=== PATIENT | female | born 1995 | race American Indian/Alaskan Native ===

== ENCOUNTER 2017-07-07 23:08 | Emergency (ER) | payer MEDICAID ==
[2017-07-07 23:19] VITALS: BP 118/62; PULSE 78; RESP 18; TEMP 97.9; O2SAT 99
[2017-07-07] MEDS ORDERED: Sodium Chloride 0.9% 1,000 ML IV STA (23:32)
--- NOTE | 2017-07-07 23:41 | ED PDOC ---
Arrival/HPI - General Chief Complaint: Abdominal Pain Time Seen by Provider: 07/07/17 23:09 Historian: Patient - History of Present Illness Narrative History of Present Illness (Text): 07/07/17 23:35 21 year old female presents to the emergency department complaining of epigastric pain radiating to the lower back associated with a cough that began 3 hours ago. Patient states that she was walking with her aunt and after coughing with mucus pain began. She also states the pain was severe and went to [facility]. Patient left after waiting over an hour and states she was shaking. Patient states to not have eaten since, but denies any fever, chills, chest pain , shortness of breath, nausea, vomiting, diarrhea, urinary symptoms, neck pain, headache, dizziness, or any other complaints. Time/Duration: Other (began 3 hours ago) Symptom Onset: Sudden Activities at Onset: Light Context: Walking Past Medical History - Provider Review Nursing Documentation Reviewed: Yes - Psychiatric Hx Substance Use: No Family/Social History - Physician Review Nursing Documentation Reviewed: Yes Family/Social History: No Known Family HX Smoking Status: n Hx Alcohol Use: No Hx Substance Use: No Allergies/Home Meds Allergies/Adverse Reactions: Allergies banana Allergy (Verified 07/07/17 23:22) SWELLING Review of Systems - Physician Review All systems were reviewed & negative as marked: Yes - Review of Systems Constitutional: absent: Fevers, Other (chills) Respiratory: Cough (with mucus ). absent: SOB Cardiovascular: absent: Chest Pain Gastrointestinal: Abdominal Pain (epigastric abdominal pain), Appetite Changes. absent: Diarrhea, Nausea, Vomiting Genitourinary Female: absent: Dysuria, Frequency, Hematuria, Urine Output Changes Musculoskeletal: Back Pain (lower back pain). absent: Neck Pain Neurological: absent: Headache, Dizziness Physical Exam Vital Signs Reviewed: Yes Vital Signs Temp Pulse Resp BP Pulse Ox 07/07/17 23:16 97.9 F 78 18 118/62 99 Temperature: Afebrile Blood Pressure: Normal Pulse: Regular Respiratory Rate: Normal Appearance: Positive for: Well-Appearing, Non-Toxic, Comfortable Pain Distress: None Mental Status: Positive for: Alert and Oriented X 3 - Systems Exam Head: Present: Atraumatic, Normocephalic Pupils: Present: PERRL Extroacular Muscles: Present: EOMI Conjunctiva: Present: Normal Mouth: Present: Moist Mucous Membranes Neck: Present: Normal Range of Motion Respiratory/Chest: Present: Clear to Auscultation, Good Air Exchange. No: Respiratory Distress, Accessory Muscle Use Cardiovascular: Present: Regular Rate and Rhythm, Normal S1, S2. No: Murmurs Abdomen: Present: Tenderness (Epigastric tenderness), Normal Bowel Sounds. No: Distention, Peritoneal Signs Back: Present: Normal Inspection Upper Extremity: Present: Normal Inspection. No: Cyanosis, Edema Lower Extremity: Present: Normal Inspection. No: Edema Neurological: Present: GCS=15, CN II-XII Intact, Speech Normal Skin: Present: Warm, Dry, Normal Color. No: Rashes Psychiatric: Present: Alert, Oriented x 3, Normal Insight, Normal Concentration Medical Decision Making ED Course and Treatment: 07/07/17 23:35 Impression: 21 year old female presents complaining of epigastric abdominal pain radiating to the lower back that began 3 hours ago after coughing. Plan: -- Labs -- Pepcid -- IV Fluids -- Toradol -- Zofran Inj -- HCG, Qualitative Urine -- Urinalysis -- Reassess and disposition Progress Notes: - Lab Interpretations Lab Results: 07/08/17 00:05 07/08/17 00:05 Lab Results 07/08/17 00:05: Sodium 143, Potassium 3.7, Chloride 105, Carbon Dioxide 22, Anion Gap 20, BUN 11, Creatinine 0.7, Est GFR ( Amer) > 60, Est GFR (Non- Af Amer) > 60, Random Glucose 95, Calcium 10.0, Total Bilirubin 0.9, AST 23, ALT 22, Alkaline Phosphatase 68, Total Protein 8.3, Albumin 5.0 H, Globulin 3.3 , Albumin/Globulin Ratio 1.5, Lipase 67 07/08/17 00:05: WBC 6.8, RBC 4.54, Hgb 13.1, Hct 38.2, MCV 84.1, MCH 28.9, MCHC 34.3, RDW 12.7, Plt Count 237, MPV 10.0, Gran % 67.8, Lymph % (Auto) 27.3, Webb % (Auto) 4.5, Eos % (Auto) 0.3 L, Baso % (Auto) 0.1, Gran # 4.62, Lymph # 1.9, Webb # 0.3, Eos # 0.0, Baso # 0.01 07/07/17 23:35: Urine Color Yellow, Urine Appearance Cloudy, Urine pH 6.0, Ur Specific [place] >= 1.030, Urine Protein 30 H, Urine Glucose (UA) Negative, Urine Ketones Negative, Urine Blood Large H, Urine Nitrate Negative, Urine Bilirubin Small H, Urine Urobilinogen 1.0 H, Ur Leukocyte Esterase Negative, Urine RBC 2 - 5, Urine WBC 1 - 3, Ur Epithelial Cells 6 - 8, Urine Bacteria Mod , Urine HCG, Qual Negative I have reviewed the lab results: Yes - Medication Orders Current Medication Orders: Discontinued Medications Famotidine (Pepcid) 20 mg IVP STAT STA Stop: 07/07/17 23:33 Last Admin: 07/08/17 00:06 Dose: 20 mg IVP Administration Document 07/08/17 00:06 GABRIELLA (Rec: 07/08/17 00:06 [id number] Charges for Administration # of IVP Administrations 1 Sodium Chloride (Sodium Chloride 0.9%) 1,000 mls @ 1,000 mls/hr IV .Q1H STA Stop: 07/08/17 00:31 Last Admin: 07/08/17 00:06 Dose: 1,000 mls/hr eMAR Start Stop Document 07/08/17 00:06 GABRIELLA (Rec: 07/08/17 00:06 [id number] Intravenous Solution Start Date 07/08/17 Start Time 00:06 End Date 07/08/17 End time 01:06 Total Infusion Time 60 Ketorolac Tromethamine (Toradol) 30 mg IVP STAT STA Stop: 07/07/17 23:33 Last Admin: 07/08/17 00:05 Dose: 30 mg MAR Pain Assessment Document 07/08/17 00:05 GABRIELLA (Rec: 07/08/17 00:06 [id number][facility] Pain Reassessment Is this a pain reassessment? No Sleep Is patient sleeping during reassessment? No Presence of Pain Presence of Pain Yes Pain Scale Used Pain Scale Used Numeric Location Pain Location Body Site Abdomen Description Pain Behavior Restlessness Facial Grimacing Aggravating Factors ADL's Changing Position Alleviating Factors/Management Medication Techniques IVP Administration Document 07/08/17 00:05 JOPat (Rec: 07/08/17 00:[address] [id number]) Charges for Administration # of IVP Administrations 1 Nitrofurantoin Macrocrystals (Macrobid) 100 mg PO STAT STA Stop: 07/08/17 01:43 Last Admin: 07/08/17 01:52 Dose: 100 mg Ondansetron HCl (Zofran Inj) 4 mg IVP STAT STA Stop: 07/07/17 23:33 Last Admin: 07/08/17 00:06 Dose: 4 mg IVP Administration Document 07/08/17 00:06 JOL (Rec: 07/08/17 00:06 [facility][id number][facility] Charges for Administration # of IVP Administrations 1 - Scribe Statement The provider has reviewed the documentation as recorded by the Scribe Garrett Gilmore All medical record entries made by the Scribe were at my direction and personally dictated by me. I have reviewed the chart and agree that the record accurately reflects my personal performance of the history, physical exam, medical decision making, and the department course for this patient. I have also personally directed, reviewed, and agree with the discharge instructions and disposition. Disposition/Present on Arrival - Present on Arrival Any Indicators Present on Arrival: No History of DVT/PE: No History of Uncontrolled Diabetes: No Urinary Catheter: No History of Decub. Ulcer: No History Surgical Site Infection Following: None - Disposition Have Diagnosis and Disposition been Completed?: Yes Diagnosis: UTI (urinary tract infection) Disposition: HOME/ ROUTINE Disposition Time: 00:35 Condition: IMPROVED Discharge Instructions (ExitCare): Urinary Tract Infection in Women (ED) Additional Instructions: Thank you for letting us take care of you today. Your provider was Dr. Briggs. You were treated for urinary tract infection. The emergency medical care you received today was directed at your acute symptoms. If you were prescribed any medication, please fill it and take as directed. It may take several days for your symptoms to resolve. Return to the Emergency Department if your symptoms worsen, do not improve, or if you have any other problems. Please contact your doctor or call one of the physicians/clinics you have been referred to that are listed on the Patient Visit Information form that is included in your discharge packet. Bring any paperwork you were given at discharge with you along with any medications you are taking to your follow up visit. Our treatment cannot replace ongoing medical care by a primary care provider (PCP) outside of the emergency department. Thank you for allowing the [facility] team to be part of your care today. Follow up with the clinic in 3-4 days for re-evaluation and further management. Prescriptions: Ibuprofen [Motrin] 600 mg PO Q6 PRN #20 tab PRN Reason: Pain, Moderate (4-7) Nitrofurantoin Macrocrystals [Macrobid] 100 mg PO BID #10 cap Referrals: [facility] [Outside] - Follow up with primary [facility] [place] [Outside] - Follow up with primary [facility], [Primary Care Provider] - Follow up with primary Forms: [employer] ([place])
[2017-07-07 23:49] LABS: URINE BILIRUBIN SMALL (NEGATIVE); URINE BLOOD LARGE (NEGATIVE); URINE GLUCOSE (UA) NEGATIVE (NEGATIVE); URINE KETONE NEGATIVE (NEGATIVE); URINE LEUKOCYTE ESTERASE NEGATIVE Leu/uL (NEGATIVE); URINE PROTEIN 30 mg/dL (<30 mg/dL)
[2017-07-07 23:52] LABS: URINE APPEARANCE CLOUDY (CLEAR); URINE COLOR YELLOW (YELLOW)
[2017-07-08] LABS: URINE BACTERIA MOD (NEG)
[2017-07-08 00:21] LABS: ALB/GLOB RATIO 1.5 (1.1-1.8); ALKALINE PHOSPHATASE 68 U/L (38-126); ALT/SGPT 22 U/L (7-56); AST/SGOT 23 U/L (14-36); BILIRUBIN,TOTAL 0.9 mg/dL (0.2-1.3); BLOOD UREA NITROGEN 11 mg/dL (7-21); CARBON DIOXIDE 22 mmol/L (21-33); CHLORIDE 105 mmol/L (98-107); GFR AFRICAN-AMERICAN > 60; GLUCOSE,RANDOM 95 mg/dL (70-110); LIPASE 67 U/L (23-300); POTASSIUM 3.7 mmol/L (3.6-5.0); SODIUM 143 mmol/L (132-148); TOTAL PROTEIN 8.3 g/dL (5.8-8.3)
[2017-07-08 00:24] LABS: BASO # 0.01 K/mm3 (0.0-2.0); BASO % 0.1 % (0.0-3.0); EOS % 0.3 % (1.5-5.0); GRAN # 4.62 (1.4-6.5); GRAN % 67.8 % (50.0-68.0); HEMATOCRIT 38.2 % (36.0-48.0); LYMPH # 1.9 (1.2-3.4); LYMPH % 27.3 % (22.0-35.0); MEAN CELL VOLUME 84.1 fl (80.0-105.0); MEAN CORPUSCULAR HEMOGLOBIN 28.9 pg (25.0-35.0); MEAN CORPUSCULAR HGB CONC 34.3 g/dl (31.0-37.0); MONO # 0.3 (0.1-0.6); MONO % 4.5 % (1.0-6.0); RED CELL DISTRIBUTION WIDTH 12.7 % (11.5-14.5); WHITE BLOOD COUNT 6.8 10^3/ul (4.5-11.0)
== END 2017-07-08 02:00 | disposition home or self-care (01) ==
LOC: ED 23:08
DX: N39.0 Urinary tract infection, site not specified (principal)
CPT/HCPCS: 80053; 81001; 83690; 84703; 85025; 96361; 96374; 96375; 99283; J1885; J2405; J7040